=== PATIENT | female | born 1945 | race Caucasian/White ===

== ENCOUNTER 2020-10-16 11:46 | Inpatient (IN) | payer MEDICARE, SELFPAY ==
[2020-10-16] VITALS (11 sets, daily range): BP systolic 149–206; BP diastolic 76–109; PULSE 55–88; RESP 16–18; TEMP 36.4–36.9; O2SAT 94–100; BMI 30.2
--- NOTE | 2020-10-16 12:03 | DI.RAD.S_ITS ---
PROCEDURE: XR CHEST 1V INDICATIONS: Possible stroke TECHNIQUE: One view of the chest was acquired. COMPARISON: [facility], CT, CT HEAD/BRAIN WO CON, 10/16/2020, 12:27. FINDINGS: Surgical changes and devices: None. Lungs and pleura: Lungs are clear. No pleural effusions or pneumothorax. Mediastinum: The cardiac contours are within normal limits. The aorta demonstrates calcification and tortuosity. Bones and chest wall: No suspicious bony lesions. Mild dextroconvex scoliotic curvature is seen. Age-appropriate bony degenerative changes are seen. Overlying soft tissues appear unremarkable. IMPRESSION: No acute cardiopulmonary process is seen. Dictated by: Tho Crespo M.D. on 10/16/2020 at 11:39 Approved by: Tho Crespo M.D. on 10/16/2020 at 11:40
--- NOTE | 2020-10-16 12:24 | DI.CT.S_ITS ---
PROCEDURE: CT HEAD/BRAIN WO CON INDICATIONS: increased confusion TECHNIQUE: Noncontrast 4.5 mm thick angled axial sections acquired from the foramen magnum to the vertex, with coronal and sagittal reformats. For radiation dose reduction, the following was used: automated exposure control, adjustment of mA and/or kV according to patient size. COMPARISON: [facility], MR, BRAIN (IAC) W AND WO CONTRAST, 11/10/2009, 14:25. [facility], CR, XR CHEST 1V, 10/16/2020, 12:27. FINDINGS: Image quality: Excellent. CSF spaces: Basal cisterns are patent. No extra-axial fluid collections. The ventricles are symmetric in size and shape. Brain: No intracranial bleeds or masses. The previously described left internal auditory canal lesion is not seen on this study. There is cerebral volume loss for age, with resultant ventricular and sulcal prominence. There are periventricular and deep white matter chronic small vessel ischemic changes. An apparent remote lacunar infarct can be seen involving the left insula. There is intracranial internal carotid artery atherosclerosis. Skull and face: Calvarium and visualized facial bones appear intact, without suspicious lesions. Incidental note is made of hyperostosis frontalis. This is not considered to be pathologic in a woman of this age. Sinuses: Visualized sinuses and mastoids are clear. IMPRESSION: No carla, acute abnormality can be seen on this study. Apparent remote left insula lacunar infarction, which is stable since 2009. Dictated by: Tho Crespo M.D. on 10/16/2020 at 11:40 Approved by: Tho Crespo M.D. on 10/16/2020 at 11:42
--- NOTE | 2020-10-16 12:47 | ED_ITS ---
HPI - Neuro Symptoms/Deficit General Chief Complaint: Neuro Symptoms/Deficit Stated Complaint: CONFUSION, MEMORY LOSS Time Seen by Provider: 10/16/20 12:08 Source: patient and family Mode of arrival: Ambulatory Limitations: no limitations History of Present Illness HPI Narrative: Patient is a 74-year-old female with history of hypertension hyperlipidemia and CVA presenting with worsening confusion. She has and ne guille who checks on her regularly she spoke to her on the phone last week she does have some issues with word finding at baseline however today she is much more confused. When asked what year it is she consistently replies Friday, when asked what she did yesterday she talks about cigarette boxes but when she went to open a box there was nothing there. She is referring to frequently looking for nail [place] remover about cannot find it. She denies any pain. She can not remember if she has had fever. Timing confirmed by: caregiver On Anticoagulants: Yes (ASA) Related Data Home Medications Medication Instructions Recorded Confirmed cholecalciferol (vitamin D3) 2,000 unit PO QDAY #0 09/15/12 10/16/20 [Vitamin D3] Previous Rx's Medication Instructions Recorded amlodipine [Norvasc] 5 mg PO QDAY #90 tab 09/02/16 atorvastatin [Lipitor] 80 mg PO HS #90 tab 09/02/16 furosemide 40 mg PO QDAY #30 tab 12/03/16 omeprazole 40 mg PO QDAY #180 cap 12/03/16 triamcinolone acetonide 0.1 % TOPICAL PRN #80 gm 03/14/17 clotrimazole 1 gm TOPICAL QDAY #30 gm 03/20/17 Allergies Allergy/AdvReac Type Severity Reaction Status Date / Time cat dander Allergy Intermediate Sneezing Verified 10/16/20 12:01 adhesive tape AdvReac Intermediate Rash Verified 10/16/20 12:01 Review of Systems Review of Systems Narrative: Very confused ROS Unobtainable: Unobtainable due to mental condition Hematologic/Lymphatic On Anticoagulants: Yes (ASA) Patient History Medical History Anemia (09/13/16) Coronary artery disease involving [place] coronary artery of [place] heart without angina pectoris (09/13/16) Essential hypertension (09/13/16) Hirsutism (09/13/16) History of myocardial infarction (09/13/16) History of smoking (09/13/16) Mixed hyperlipidemia (09/13/16) Primary insomnia (09/13/16) Social History household members: none Smoking Status: Never smoker Smoking Status: Never smoker alcohol intake frequency: 0-2 drinks per day Substance Use Type: does not use Exam Initial Vital Signs Initial Vital Signs: Vital Signs Temperature 98.0 F 10/16/20 11:54 Pulse Rate 88 10/16/20 11:54 Respiratory Rate 18 10/16/20 11:54 Blood Pressure 206/109 H 10/16/20 11:54 Pulse Oximetry 99 10/16/20 11:54 GENERAL: Alert pleasantly confused 74-year-old female and in no acute distress. HEENT: Head atraumatic,EOMI, pupils reactive, face symmetric, moist mucous membranes CARDIOVASCULAR: Regular rate and rhythm without murmurs, rubs or gallops. RESPIRATORY: Breath sounds equal bilaterally, no wheezes rales or rhonchi. ABDOMEN: Soft, nontender. Normoactive bowel sounds all 4 quadrants. No guarding or rebound. EXTREMITIES: Normal range of motion, no clubbing or edema. Neurovascularly intact NEUROLOGICAL: Alert and oriented x1.Normal gait and speech. Cranial nerves II through XII grossly intact. Good [id number], good [id number], strength equal bilaterally, no dysarthria or aphasia, sensation in tact to soft touch bilaterally, no visual changes, no facial droop SKIN: Warm, dry, no laceration, no petechiae, no rashes or lesions. Course Orders Ordered: ED Orders 10/16/20 12:03 XR chest 1V Stat EKG-12 Lead Stat 10/16/20 12:16 Urine Drug Screen, Rapid Stat Urine Microscopic Stat 10/16/20 12:24 CT head/brain wo con Stat 10/16/20 12:25 Acetaminophen Stat Complete Blood Count AUTO DIFF Stat Comprehensive Metabolic Panel Stat Ethanol (ETOH) Stat Lactate (Lactic Acid) Stat Partial Thromboplastin Time Stat Procalcitonin Stat Prothrombin Time INR Stat Salicylate Stat TSH w/ Reflex to FT4 Stat Troponin & CK Cardiac Panel Stat 10/16/20 13:25 Ammonia (NH3) Stat 10/16/20 14:45 COVID19 - ADMIT (GEOSPATIAL INFORMATION TECHNOLOGIST swab/PCR) Stat Acetaminophen (Acetaminophen 325 Mg Tablet) 650 mg PO Q6HR PRN PRN Reason: Fever/Mild Pain (1-3) Last Admin: 10/16/20 18:36 Dose: 650 mg Documented by: MISAEL Enoxaparin Sodium (Enoxaparin 40 Mg/0.4 Ml Syringe) 40 mg SUBCUT DAILY LAYA Sodium Chloride (Normal Saline 0.9%) 1,000 mls @ 75 mls/hr IV CONT LAYA Last Admin: 10/16/20 18:16 Dose: 75 mls/hr Documented by: MISAEL Ceftriaxone Sodium/Dextrose (Rocephin) 1 gm in 50 mls @ 100 mls/hr IV Q24H LAYA Discontinued Medications Ceftriaxone Sodium/Dextrose (Rocephin) 1 gm in 50 mls @ 100 mls/hr IV NOW ONE Stop: 10/16/20 14:17 Last Infusion: 10/16/20 15:44 Dose: 0 mls/hr Documented by: Admin: 10/16/20 14:38 Dose: 100 mls/hr Documented by: ANATOLY Vital Signs Vital signs: Vital Signs - 8 hr 10/16/20 11:54 10/16/20 13:41 10/16/20 14:00 Temperature 98.0 F Pulse Rate 88 55 L 56 L Respiratory Rate 18 Blood Pressure 206/109 H 182/86 H Pulse Oximetry 99 100 99 MDM - Neuro Symptoms/Deficit Lab Data Attestation: I reviewed the patient's lab results. Result diagrams: 10/16/20 12:25 10/16/20 12:25 Labs: Lab Results 10/16/20 10/16/20 10/16/20 Range/Units 12:16 12:16 12:25 WBC 8.9 (4.5-11.0) X10^3/uL RBC 4.33 (4.0-5.2) X10^6/uL Hgb 13.5 (12.0-16.0) g/dL Hct 39.6 (36-46) % MCV 91.5 (80-100) fL MCH 31.1 (26-34) PG MCHC 34.0 (30-36) % RDW 14.2 (11.6-14.8) % Plt Count 255 (150-400) X10^3/uL Neut % (Auto) 77.5 H (50-75) % Lymph % (Auto) 11.8 L (25-40) % [place] % (Auto) 9.7 (3-14) % Eos % (Auto) 0.6 L (2-4) % Baso % (Auto) 0.4 (0-2) % Neut # (Auto) 6900 (5021-3763) /uL Lymph # (Auto) 1100 (6319-4045) /uL [place] # (Auto) 900 (0-900) /uL Eos # (Auto) 100 (0-450) /uL Baso # (Auto) 0 (0-100) /uL PT (10.1-12.7) SECONDS INR (0.9-1.3) APTT (26.4-36.2) SECONDS Sodium (137-145) mmol/L Potassium (3.4-5.1) mmol/L Chloride (98-107) mmol/L Carbon Dioxide (22-32) mmol/L BUN (7-17) mg/dL Creatinine (0.52-1.04) mg/dL Estimated GFR (>60) mL/min BUN/Creatinine Ratio (6-22) Glucose (80-110) mg/dL Lactate (0.7-2.1) mmol/L Calcium (8.4-10.2) mg/dL Total Bilirubin (0.2-1.3) mg/dL AST (14-36) IU/L ALT (<35) IU/L Alkaline Phosphatase (38-126) U/L Ammonia (9-30) umol/L Total Creatine Kinase (30-135) U/L CK-MB (CK-2) CK-MB (CK-2) Rel Index Troponin I (0.01-0.034) ng/mL Total Protein (6.3-8.2) g/dL Albumin (3.5-5.0) g/dL Globulin (1.7-4.1) g/dL Albumin/Globulin Ratio (1.0-2.8) Procalcitonin (<0.5) ng/mL TSH (0.47-4.68) uIU/mL Urine RBC 1-5/hpf (0-5/HPF) Urine WBC 5-10/hpf H (0-5/HPF) Ur Squamous Epith Cells 5-10 /hpf H (0-5/HPF) Amorphous Sediment 2+ Urine Bacteria None seen (None) Ur Culture Indicated? Cult not indicated Salicylates (<20) mg/dL U Opiates 300ng/mL cut Negative (Negative) Ur Oxycodone Screen Negative (Negative) Urine Methadone Screen Negative (Negative) Acetaminophen (10-30) ug/mL Ur Barbiturates Screen Negative (Negative) U Tricyclic Antidepress Negative (Negative) Ur Phencyclidine Scrn Negative (Negative) Ur Amphetamines Screen Negative (Negative) U Methamphetamines Scrn Negative (Negative) Ur MDMA Scrn (Ecstasy) Negative (Negative) U Benzodiazepines Scrn Negative (Negative) Urine Cocaine Screen Negative (Negative) U Marijuana (THC) Screen Negative (Negative) Ethyl Alcohol ( - 10) mg/dL 10/16/20 10/16/20 10/16/20 Range/Units 12:25 12:25 12:25 WBC (4.5-11.0) X10^3/uL RBC (4.0-5.2) X10^6/uL Hgb (12.0-16.0) g/dL Hct (36-46) % MCV (80-100) fL MCH (26-34) PG MCHC (30-36) % RDW (11.6-14.8) % Plt Count (150-400) X10^3/uL Neut % (Auto) (50-75) % Lymph % (Auto) (25-40) % [place] % (Auto) (3-14) % Eos % (Auto) (2-4) % Baso % (Auto) (0-2) % Neut # (Auto) (7976-3860) /uL Lymph # (Auto) (6057-9242) /uL [place] # (Auto) (0-900) /uL Eos # (Auto) (0-450) /uL Baso # (Auto) (0-100) /uL PT 11.7 (10.1-12.7) SECONDS INR 1.0 (0.9-1.3) APTT 34 (26.4-36.2) SECONDS Sodium 137 (137-145) mmol/L Potassium 3.6 (3.4-5.1) mmol/L Chloride 103 (98-107) mmol/L Carbon Dioxide 23 (22-32) mmol/L BUN 14 (7-17) mg/dL Creatinine 0.60 (0.52-1.04) mg/dL Estimated GFR > 60.0 (>60) mL/min BUN/Creatinine Ratio 23.3 H (6-22) Glucose 107 (80-110) mg/dL Lactate (0.7-2.1) mmol/L Calcium 10.5 H (8.4-10.2) mg/dL Total Bilirubin 1.7 H (0.2-1.3) mg/dL AST 28 (14-36) IU/L ALT 17 (<35) IU/L Alkaline Phosphatase 99 (38-126) U/L Ammonia (9-30) umol/L Total Creatine Kinase 43 (30-135) U/L CK-MB (CK-2) TNP CK-MB (CK-2) Rel Index TNP Troponin I < 0.012 (0.01-0.034) ng/mL Total Protein 8.0 (6.3-8.2) g/dL Albumin 4.7 (3.5-5.0) g/dL Globulin 3.3 (1.7-4.1) g/dL Albumin/Globulin Ratio 1.4 (1.0-2.8) Procalcitonin (<0.5) ng/mL TSH 1.16 (0.47-4.68) uIU/mL Urine RBC (0-5/HPF) Urine WBC (0-5/HPF) Ur Squamous Epith Cells (0-5/HPF) Amorphous Sediment Urine Bacteria (None) Ur Culture Indicated? Salicylates (<20) mg/dL U Opiates 300ng/mL cut (Negative) Ur Oxycodone Screen (Negative) Urine Methadone Screen (Negative) Acetaminophen (10-30) ug/mL Ur Barbiturates Screen (Negative) U Tricyclic Antidepress (Negative) Ur Phencyclidine Scrn (Negative) Ur Amphetamines Screen (Negative) U Methamphetamines Scrn (Negative) Ur MDMA Scrn (Ecstasy) (Negative) U Benzodiazepines Scrn (Negative) Urine Cocaine Screen (Negative) U Marijuana (THC) Screen (Negative) Ethyl Alcohol ( - 10) mg/dL 10/16/20 10/16/20 10/16/20 Range/Units 12:25 12:25 12:25 WBC (4.5-11.0) X10^3/uL RBC (4.0-5.2) X10^6/uL Hgb (12.0-16.0) g/dL Hct (36-46) % MCV (80-100) fL MCH (26-34) PG MCHC (30-36) % RDW (11.6-14.8) % Plt Count (150-400) X10^3/uL Neut % (Auto) (50-75) % Lymph % (Auto) (25-40) % [place] % (Auto) (3-14) % Eos % (Auto) (2-4) % Baso % (Auto) (0-2) % Neut # (Auto) (7164-6502) /uL Lymph # (Auto) (3966-1856) /uL [place] # (Auto) (0-900) /uL Eos # (Auto) (0-450) /uL Baso # (Auto) (0-100) /uL PT (10.1-12.7) SECONDS INR (0.9-1.3) APTT (26.4-36.2) SECONDS Sodium (137-145) mmol/L Potassium (3.4-5.1) mmol/L Chloride (98-107) mmol/L Carbon Dioxide (22-32) mmol/L BUN (7-17) mg/dL Creatinine (0.52-1.04) mg/dL Estimated GFR (>60) mL/min BUN/Creatinine Ratio (6-22) Glucose (80-110) mg/dL Lactate 1.0 (0.7-2.1) mmol/L Calcium (8.4-10.2) mg/dL Total Bilirubin (0.2-1.3) mg/dL AST (14-36) IU/L ALT (<35) IU/L Alkaline Phosphatase (38-126) U/L Ammonia (9-30) umol/L Total Creatine Kinase (30-135) U/L CK-MB (CK-2) CK-MB (CK-2) Rel Index Troponin I (0.01-0.034) ng/mL Total Protein (6.3-8.2) g/dL Albumin (3.5-5.0) g/dL Globulin (1.7-4.1) g/dL Albumin/Globulin Ratio (1.0-2.8) Procalcitonin 0.04 (<0.5) ng/mL TSH (0.47-4.68) uIU/mL Urine RBC (0-5/HPF) Urine WBC (0-5/HPF) Ur Squamous Epith Cells (0-5/HPF) Amorphous Sediment Urine Bacteria (None) Ur Culture Indicated? Salicylates < 1.0 (<20) mg/dL U Opiates 300ng/mL cut (Negative) Ur Oxycodone Screen (Negative) Urine Methadone Screen (Negative) Acetaminophen < 10 L (10-30) ug/mL Ur Barbiturates Screen (Negative) U Tricyclic Antidepress (Negative) Ur Phencyclidine Scrn (Negative) Ur Amphetamines Screen (Negative) U Methamphetamines Scrn (Negative) Ur MDMA Scrn (Ecstasy) (Negative) U Benzodiazepines Scrn (Negative) Urine Cocaine Screen (Negative) U Marijuana (THC) Screen (Negative) Ethyl Alcohol < 10 ( - 10) mg/dL 10/16/20 Range/Units 13:25 WBC (4.5-11.0) X10^3/uL RBC (4.0-5.2) X10^6/uL Hgb (12.0-16.0) g/dL Hct (36-46) % MCV (80-100) fL MCH (26-34) PG MCHC (30-36) % RDW (11.6-14.8) % Plt Count (150-400) X10^3/uL Neut % (Auto) (50-75) % Lymph % (Auto) (25-40) % [place] % (Auto) (3-14) % Eos % (Auto) (2-4) % Baso % (Auto) (0-2) % Neut # (Auto) (6960-4299) /uL Lymph # (Auto) (5398-6471) /uL [place] # (Auto) (0-900) /uL Eos # (Auto) (0-450) /uL Baso # (Auto) (0-100) /uL PT (10.1-12.7) SECONDS INR (0.9-1.3) APTT (26.4-36.2) SECONDS Sodium (137-145) mmol/L Potassium (3.4-5.1) mmol/L Chloride (98-107) mmol/L Carbon Dioxide (22-32) mmol/L BUN (7-17) mg/dL Creatinine (0.52-1.04) mg/dL Estimated GFR (>60) mL/min BUN/Creatinine Ratio (6-22) Glucose (80-110) mg/dL Lactate (0.7-2.1) mmol/L Calcium (8.4-10.2) mg/dL Total Bilirubin (0.2-1.3) mg/dL AST (14-36) IU/L ALT (<35) IU/L Alkaline Phosphatase (38-126) U/L Ammonia < 9 L (9-30) umol/L Total Creatine Kinase (30-135) U/L CK-MB (CK-2) CK-MB (CK-2) Rel Index Troponin I (0.01-0.034) ng/mL Total Protein (6.3-8.2) g/dL Albumin (3.5-5.0) g/dL Globulin (1.7-4.1) g/dL Albumin/Globulin Ratio (1.0-2.8) Procalcitonin (<0.5) ng/mL TSH (0.47-4.68) uIU/mL Urine RBC (0-5/HPF) Urine WBC (0-5/HPF) Ur Squamous Epith Cells (0-5/HPF) Amorphous Sediment Urine Bacteria (None) Ur Culture Indicated? Salicylates (<20) mg/dL U Opiates 300ng/mL cut (Negative) Ur Oxycodone Screen (Negative) Urine Methadone Screen (Negative) Acetaminophen (10-30) ug/mL Ur Barbiturates Screen (Negative) U Tricyclic Antidepress (Negative) Ur Phencyclidine Scrn (Negative) Ur Amphetamines Screen (Negative) U Methamphetamines Scrn (Negative) Ur MDMA Scrn (Ecstasy) (Negative) U Benzodiazepines Scrn (Negative) Urine Cocaine Screen (Negative) U Marijuana (THC) Screen (Negative) Ethyl Alcohol ( - 10) mg/dL Point of Care Testing Glucose POC 94 Urine Dip Bedside Urine Glucose Negative Bedside Urine Bilirubin - Negative Bedside Urine Ketone - Negative Urine Specific [place] 1.025 Bedside Urine Occult Blood +/- Bedside Urine pH 6.0 Bedside Urine Protein +/- 15 Bedside Urine Urobilinogen - Negative Bedside Urine Nitrite + Positive Bedside Urine Leukocytes ++ [address] scan - head: Radiologist's Impression: PROCEDURE: CT HEAD/BRAIN WO CON INDICATIONS: increased confusion TECHNIQUE: Noncontrast 4.5 mm thick angled axial sections acquired from the foramen magnum to the vertex, with coronal and sagittal reformats. For radiation dose reduction, the following was used: automated exposure control, adjustment of mA and/or kV according to patient size. COMPARISON: [facility], MR, BRAIN (IAC) W AND WO CONTRAST, 11/10/2009, 14:25. [facility], CR, XR CHEST 1V, 10/16/2020, 12:27. FINDINGS: Image quality: Excellent. CSF spaces: Basal cisterns are patent. No extra-axial fluid collections. The ventricles are symmetric in size and shape. Brain: No intracranial bleeds or masses. The previously described left internal auditory canal lesion is not seen on this study. There is cerebral volume loss for age, with resultant ventricular and sulcal prominence. There are periventricular and deep white matter chronic small vessel ischemic changes. An apparent remote lacunar infarct can be seen involving the left insula. There is intracranial internal carotid artery atherosclerosis. Skull and face: Calvarium and visualized facial bones appear intact, without suspicious lesions. Incidental note is made of hyperostosis frontalis. This is not considered to be pathologic in a woman of this age. Sinuses: Visualized sinuses and mastoids are clear. IMPRESSION: No carla, acute abnormality can be seen on this study. Apparent remote left insula lacunar infarction, which is stable since 2009. Dictated by: Tho Crespo M.D. on 10/16/2020 at 11:40 ECG Data Attestation: I personally reviewed and interpreted this ECG as follows: Prior ECG tracings: not available for review Interpretation: Sinus rhythm rate 62 year interval 124 continue the [address] changes no prior to compare [facility] Narrative Medical decision making narrative: The patient does have nitrates and leukocytes in her urine positive for UTI. Overall does not appear acutely septic without fever leukocytosis and has a normal lactate. However she clearly is not able to communicate clearly and seems very confused. I did speak on the phone with her son who is her DPOA, he will be on a flight from [place]. States that she does have some confusion at baseline but this seems to be more so than usual. No focal deficits. Metabolic encephalopathy likely from UTI. She is given 1 dose of Rocephin. Concern patient lives alone on the [facility]. Son is concerned that she is unable to care for herself requesting social work evaluation Discharge Plan Departure Patient Disposition: Admitted As Inpatient Clinical Impression: Acute metabolic encephalopathy, Acute UTI Admit Date/Time: 10/16/20 14:21 Admit Provider: Steven Null
[2020-10-16 13:11] LABS: Add Manual Diff / Slide Review NO; Basophils Absolute Auto 0 /uL (0-100); Basophils Percent Auto 0.4 % (0-2); Eosinophils Absolute Auto 100 /uL (0-450); Eosinophils Percent Auto 0.6 % (2-4); Hematocrit 39.6 % (36-46); Hemoglobin 13.5 g/dL (12.0-16.0); Lymphocytes Absolute Auto 1100 /uL (1100-4500); Lymphocytes Percent Auto 11.8 % (25-40); Mean Corpuscular Hemoglobin 31.1 PG (26-34); Mean Corpuscular Volume 91.5 fL (80-100); Monocytes Absolute Auto 900 /uL (0-900); Monocytes Percent Auto 9.7 % (3-14); Neutrophils Absolute Auto 6900 /uL (1500-7000); Neutrophils Percent Auto 77.5 % (50-75); Platelet Count 255 X10^3/uL (150-400); Red Blood Cell Count 4.33 X10^6/uL (4.0-5.2); Red Cell Distribution Width 14.2 % (11.6-14.8); White Blood Cell Count 8.9 X10^3/uL (4.5-11.0)
[2020-10-16 13:13] LABS: Prothrombin Time 11.7 SECONDS (10.1-12.7)
[2020-10-16 13:16] LABS: PTT Partial Thromboplastin Tim 34 SECONDS (26.4-36.2)
[2020-10-16 13:20] LABS: UR Morphine/Opiate cutoff 300 Negative (Negative); Ur Creatinine Normal (Normal); Ur Specific Gravity Normal (Normal); Urine Amphetamines Negative (Negative); Urine Barbiturates Negative (Negative); Urine Benzodiazepines Negative (Negative); Urine Cocaine Negative (Negative); Urine MDMA Negative (Negative); Urine Methadone Negative (Negative); Urine Methamphetamines Negative (Negative); Urine Oxycodone Negative (Negative); Urine Phencyclidine Negative (Negative); Urine Tetrahydrocannabinol Negative (Negative); Urine Tricyclic Antidepressant Negative (Negative); Urine pH Normal (Normal)
[2020-10-16 13:21] LABS: Alanine Aminotransferase 17 IU/L (<35); Albumin 4.7 g/dL (3.5-5.0); Albumin Globulin Ratio 1.4 (1.0-2.8); Alkaline Phosphatase 99 U/L (38-126); Aspartate Aminotransferase 28 IU/L (14-36); BUN Creatinine Ratio 23.3 (6-22); Bilirubin Total 1.7 mg/dL (0.2-1.3); Blood Urea Nitrogen 14 mg/dL (7-17); Calcium 10.5 mg/dL (8.4-10.2); Carbon Dioxide 23 mmol/L (22-32); Chloride 103 mmol/L (98-107); Creatine Kinase 43 U/L (30-135); Estimated Glomerular Filt Rate > 60.0 mL/min (>60); Globulin 3.3 g/dL (1.7-4.1); Glucose 107 mg/dL (80-110); HEMOLYSIS < 15 (0-50); Potassium 3.6 mmol/L (3.4-5.1); Sodium 137 mmol/L (137-145)
[2020-10-16 13:22] LABS: Acetaminophen < 10 ug/mL (10-30); Ethanol (ETOH) < 10 mg/dL; Salicylate < 1.0 mg/dL (<20)
[2020-10-16 13:32] LABS: Troponin I < 0.012 ng/mL (0.01-0.034)
[2020-10-16 13:38] LABS: Procalcitonin 0.04 ng/mL (<0.5)
--- NOTE | 2020-10-16 13:43 | PC.NURSE ---
pt states we are allowed to speak with daughter alice and son karley.
[2020-10-16 13:50] LABS: Ammonia (NH3) < 9 umol/L (9-30)
[2020-10-16 13:54] LABS: TSH w/ Reflex to FT4 1.16 uIU/mL (0.47-4.68)
--- NOTE | 2020-10-16 14:26 | PC.NURSE ---
during 2 different conversations the patient spoke about empty boxes. patient mentioned a cigarette box being empty, pt doesn't smoke. pt then spoke about a box being empty that was supposed to have finger nail supplies, it does appear that pt gets her nails done.
[2020-10-16] MEDS: CEFTRIAXONE 1 GM/50 ML FROZ.PIGGY IV (14:38)
[2020-10-16 15:21] LABS: Bacteria Urine None Seen
[2020-10-16 15:36] LABS: Amorphous Sediment Urine 2+; Culture Indicated Urine Cult Not Indicated; RBC Urine 1-5/HPF (0-5/HPF); Squamous Epithelial Cell Urine 5-10 /HPF (0-5/HPF); WBC Urine 5-10/HPF (0-5/HPF)
[2020-10-16 16:42] LABS: COVID19 - ADMIT (NP swab/PCR) Negative (Negative)
[2020-10-16] MEDS: SODIUM CHLORIDE 0.9% 1,000 ML 75 ML IV (18:16)
[2020-10-16] MEDS: ACETAMINOPHEN 325 MG TABLET 650 MG PO (18:36)
--- NOTE | 2020-10-16 20:27 | PM.HP.1 ---
History of Present Illness History of Present Illness Date Patient Seen: 10/16/20 Time Patient Seen: 15:00 Date of Onset of Symptoms: 10/16/20 Chief complaint: CONFUSION, MEMORY LOSS Narrative: 74W PMH CVA, HTN, HL who presents to the ER with worsening confusion. Patient is encephalopathic and is not making clear sense. She is with a neighbor who checks on her regularly and today noted she was much more confused than baseline. The patient is denying any symptoms. No pain, no fever. She does not think anything is wrong at the moment. She has noo chest pain, SOB, abdominal pain, nausea, or vomiting. Neighbor is not clear how long this has been occurring for. Patient History Medical History Anemia (09/13/16) Coronary artery disease involving [place] coronary artery of [place] heart without angina pectoris (09/13/16) Essential hypertension (09/13/16) Hirsutism (09/13/16) History of myocardial infarction (09/13/16) History of smoking (09/13/16) Mixed hyperlipidemia (09/13/16) Primary insomnia (09/13/16) Family & Social History Social History: household members none Prior Living Arrangements Apartment/Condo Safety & Behavioral: Feels Safe in Current Yes Environment Been Physically Hurt or No Threatened By a Person Suicidal Ideation Description None Suicide Plan Description No Plan Tobacco & Substance use: Smoking Status Never smoker alcohol intake frequency a few times a month Substance Use Type does not use Meds Home Medications and Allergies Home Medications Medication Instructions Recorded Confirmed Type cholecalciferol (vitamin D3) 2,000 unit PO QDAY #0 09/15/12 10/16/20 History [Vitamin D3] amlodipine [Norvasc] 5 mg PO QDAY #90 tab 09/02/16 10/16/20 Rx atorvastatin [Lipitor] 80 mg PO HS #90 tab 09/02/16 10/16/20 Rx furosemide 40 mg PO QDAY #30 tab 12/03/16 10/16/20 Rx omeprazole 40 mg PO QDAY #180 cap 12/03/16 10/16/20 Rx triamcinolone acetonide 0.1 % TOPICAL PRN #80 gm 03/14/17 10/16/20 Rx clotrimazole 1 gm TOPICAL QDAY #30 gm 03/20/17 10/16/20 Rx Allergies Allergy/AdvReac Type Severity Reaction Status Date / Time cat dander Allergy Intermediate Sneezing Verified 10/16/20 12:01 adhesive tape AdvReac Intermediate Rash Verified 10/16/20 12:01 Review of Systems Review of Systems Narrative: 14 systems reviewed and negative except as documented by the HPI. Exam Vital Signs (past 8 hours): - 10/16/20 13:41 10/16/20 14:00 10/16/20 14:30 Temperature Pulse Rate 55 L 56 L 68 Respiratory Rate Blood Pressure 182/86 H Pulse Oximetry 100 99 99 10/16/20 15:00 10/16/20 15:01 10/16/20 17:27 Temperature 98.3 F Pulse Rate 55 L 63 69 Respiratory Rate 17 Blood Pressure 170/95 H 172/92 H Pulse Oximetry 98 98 97 10/16/20 18:24 Temperature Pulse Rate Respiratory Rate Blood Pressure Pulse Oximetry 94 Oxygen Delivery Method Room Air Oxygen Flow Rate 0 Narrative Exam Narrative: GEN: no acute distress, well nourished female HEENT: moist mucous membranes, no JVD, neck supple EYES: PERRLA CV: RRR, no murmurs PULM: clear bilaterally, no wheezes rhonchi rales ABD: soft, nontender, nondistended, no organomegaly noted, normal bowel sounds EXT: warm and well perfused, no edema SKIN: no rashes noted NEURO: patient with no focal deficits, she has word finding difficult with neighbor notes has at baseline, she is very confused and only oriented to self PSYCH: slightly agitated, but redirectable and pleasant Objective Labs Result Diagrams: 10/16/20 12:25 10/16/20 12:25 Labs: Laboratory Results - last 24 hr 10/16/20 10/16/20 10/16/20 12:16 12:16 12:25 WBC 8.9 RBC 4.33 Hgb 13.5 Hct 39.6 MCV 91.5 MCH 31.1 MCHC 34.0 RDW 14.2 Plt Count 255 Neut % (Auto) 77.5 H Lymph % (Auto) 11.8 L [place] % (Auto) 9.7 Eos % (Auto) 0.6 L Baso % (Auto) 0.4 Neut # (Auto) 6900 Lymph # (Auto) 1100 [place] # (Auto) 900 Eos # (Auto) 100 Baso # (Auto) 0 PT INR APTT Sodium Potassium Chloride Carbon Dioxide BUN Creatinine Estimated GFR BUN/Creatinine Ratio Glucose Lactate Calcium Total Bilirubin AST ALT Alkaline Phosphatase Ammonia Total Creatine Kinase CK-MB (CK-2) CK-MB (CK-2) Rel Index Troponin I Total Protein Albumin Globulin Albumin/Globulin Ratio Procalcitonin TSH Urine RBC 1-5/hpf Urine WBC 5-10/hpf H Ur Squamous Epith Cells 5-10 /hpf H Amorphous Sediment 2+ Urine Bacteria None seen Ur Culture Indicated? Cult not indicated Salicylates U Opiates 300ng/mL cut Negative Ur Oxycodone Screen Negative Urine Methadone Screen Negative Acetaminophen Ur Barbiturates Screen Negative U Tricyclic Antidepress Negative Ur Phencyclidine Scrn Negative Ur Amphetamines Screen Negative U Methamphetamines Scrn Negative Ur MDMA Scrn (Ecstasy) Negative U Benzodiazepines Scrn Negative Urine Cocaine Screen Negative U Marijuana (THC) Screen Negative Ethyl Alcohol SARS-CoV-2 (PCR) 10/16/20 10/16/20 10/16/20 12:25 12:25 12:25 WBC RBC Hgb Hct MCV MCH MCHC RDW Plt Count Neut % (Auto) Lymph % (Auto) [place] % (Auto) Eos % (Auto) Baso % (Auto) Neut # (Auto) Lymph # (Auto) [place] # (Auto) Eos # (Auto) Baso # (Auto) PT 11.7 INR 1.0 APTT 34 Sodium 137 Potassium 3.6 Chloride 103 Carbon Dioxide 23 BUN 14 Creatinine 0.60 Estimated GFR > 60.0 BUN/Creatinine Ratio 23.3 H Glucose 107 Lactate Calcium 10.5 H Total Bilirubin 1.7 H AST 28 ALT 17 Alkaline Phosphatase 99 Ammonia Total Creatine Kinase 43 CK-MB (CK-2) TNP CK-MB (CK-2) Rel Index TNP Troponin I < 0.012 Total Protein 8.0 Albumin 4.7 Globulin 3.3 Albumin/Globulin Ratio 1.4 Procalcitonin TSH 1.16 Urine RBC Urine WBC Ur Squamous Epith Cells Amorphous Sediment Urine Bacteria Ur Culture Indicated? Salicylates U Opiates 300ng/mL cut Ur Oxycodone Screen Urine Methadone Screen Acetaminophen Ur Barbiturates Screen U Tricyclic Antidepress Ur Phencyclidine Scrn Ur Amphetamines Screen U Methamphetamines Scrn Ur MDMA Scrn (Ecstasy) U Benzodiazepines Scrn Urine Cocaine Screen U Marijuana (THC) Screen Ethyl Alcohol SARS-CoV-2 (PCR) 10/16/20 10/16/20 10/16/20 12:25 12:25 12:25 WBC RBC Hgb Hct MCV MCH MCHC RDW Plt Count Neut % (Auto) Lymph % (Auto) [place] % (Auto) Eos % (Auto) Baso % (Auto) Neut # (Auto) Lymph # (Auto) [place] # (Auto) Eos # (Auto) Baso # (Auto) PT INR APTT Sodium Potassium Chloride Carbon Dioxide BUN Creatinine Estimated GFR BUN/Creatinine Ratio Glucose Lactate 1.0 Calcium Total Bilirubin AST ALT Alkaline Phosphatase Ammonia Total Creatine Kinase CK-MB (CK-2) CK-MB (CK-2) Rel Index Troponin I Total Protein Albumin Globulin Albumin/Globulin Ratio Procalcitonin 0.04 TSH Urine RBC Urine WBC Ur Squamous Epith Cells Amorphous Sediment Urine Bacteria Ur Culture Indicated? Salicylates < 1.0 U Opiates 300ng/mL cut Ur Oxycodone Screen Urine Methadone Screen Acetaminophen < 10 L Ur Barbiturates Screen U Tricyclic Antidepress Ur Phencyclidine Scrn Ur Amphetamines Screen U Methamphetamines Scrn Ur MDMA Scrn (Ecstasy) U Benzodiazepines Scrn Urine Cocaine Screen U Marijuana (THC) Screen Ethyl Alcohol < 10 SARS-CoV-2 (PCR) 10/16/20 10/16/20 13:25 14:45 WBC RBC Hgb Hct MCV MCH MCHC RDW Plt Count Neut % (Auto) Lymph % (Auto) [place] % (Auto) Eos % (Auto) Baso % (Auto) Neut # (Auto) Lymph # (Auto) [place] # (Auto) Eos # (Auto) Baso # (Auto) PT INR APTT Sodium Potassium Chloride Carbon Dioxide BUN Creatinine Estimated GFR BUN/Creatinine Ratio Glucose Lactate Calcium Total Bilirubin AST ALT Alkaline Phosphatase Ammonia < 9 L Total Creatine Kinase CK-MB (CK-2) CK-MB (CK-2) Rel Index Troponin I Total Protein Albumin Globulin Albumin/Globulin Ratio Procalcitonin TSH Urine RBC Urine WBC Ur Squamous Epith Cells Amorphous Sediment Urine Bacteria Ur Culture Indicated? Salicylates U Opiates 300ng/mL cut Ur Oxycodone Screen Urine Methadone Screen Acetaminophen Ur Barbiturates Screen U Tricyclic Antidepress Ur Phencyclidine Scrn Ur Amphetamines Screen U Methamphetamines Scrn Ur MDMA Scrn (Ecstasy) U Benzodiazepines Scrn Urine Cocaine Screen U Marijuana (THC) Screen Ethyl Alcohol SARS-CoV-2 (PCR) Negative Assessment & Plan Assessment & Plan narrative: Ms. Lopez is a 74W PMH of CVA, HTN, HL who comes in with confusion, found to have UA positive concerning for UTI. 1. UTI-UA is positive with leukocytes, it is not remarkably abnormal, but no other obvious cause of encephalopathy at the moment, so plan to treat for UTI with ceftriaxone. 2. Metabolic encephalopathy - likely from infection from UTI. Monitor for other sources of infection, and encourage redirection 3. h/o CVA - documented previously, will need to get further information why does not appear to be on aspirin 4. HTN - continue amlodipine, problem stable here 5. HL - continue statin, problem stable here DVT ppx: lovenox 40U sc CODE status: patient to confused to provide at this time, neighbor unable to say, patient has a son who is flying in to be with patient, and is not reachable currently, currently presumed full code COVID-19 COVID-19 status: Negative Result date/Date tested (Pos, Neg/Pending): 10/16/20 Time Spent With Patient Time with patient: 15-24 minutes Quality VTE Deep Vein Thrombosis/Pulmonary Embolism Present on Admission: No MIPS - Admit Advanced Care Plan / Current Medications Measures: #47 ? Advanced Care Plan Clinician documentation instruction: document at admission. [] I confirmed that the patient's Advance Care Plan is present, code status is documented, or surrogate decision maker is listed in the patient?s medical record. [SATISFIES MIPS PERFORMANCE] If Yes, Stop Here [x]The patient?s Advance Care plan is not present because: (select) [MIPS PERFORMANCE EXCEPTION/EXCLUSION] [] I confirmed today that the patient does not wish or was not able to name a surrogate decision maker or provide an Advance Care Plan. [] Hospice care is currently being provided or has been provided this calendar year [] I did NOT confirm today the presence of an Advance Care Plan or surrogate decision maker documented within the patient's medical record. [DOES NOT SATISFY MIPS PERFORMANCE] #130 - Documentation of Current Medications in the Medical Record Clinician documentation instruction: use macro the first time you see a patient. [x] I have utilized all available immediate resources to obtain, update, or review the patient?s current medications. [SATISFIES MIPS PERFORMANCE] If Yes, Stop Here [] The patient is not eligible for medication reconciliation; the patient is in an emergent medical situation where delaying treatment would jeopardize the patient?s health. [MIPS PERFORMANCE EXCEPTION/EXCLUSION] [] I did NOT confirm, update or review the patient's current list of medications today. [DOES NOT SATISFY MIPS PERFORMANCE] MIPS - CL Central Venous Catheter Placement Measure: #76 ? Prevention of Central Venous Catheter (CVC) ? Related Bloodstream Infection Clinician documentation instruction: use macro every time you place a central line. [] All elements of Maximal Sterile Barrier Technique, including hand hygiene, skin prep, and sterile ultrasound technique (if used) were followed. [SATISFIES MIPS PERFORMANCE] If Yes, Stop Here [] If ?No?, the medical reason all elements were NOT used for medical reason [] (ex. emergent condition). [] Maximal Sterile Barrier Technique was not followed, no reason provided [DOES NOT SATISFY MIPS PERFORMANCE] MIPS - DC Heart Failure Measures: #5 - Heart Failure (HF): Angiotensin-Converting Enzyme (SHANTELLE) Inhibitor or Angiotensin Receptor Katerina (ARB) Therapy for Left Ventricular Systolic Dysfunction (LVSD) and #8 - Heart Failure (HF): Beta-Katerina Therapy for Left Ventricular Systolic Dysfunction (LVSD) Clinician documentation instruction: use macro at every CHF discharge. [] The patient has current or prior documentation of left ventricular ejection fraction (LVEF) less than 40%, or moderate or severely depressed left ventricular systolic function. Answer both: [SATISFIES MIPS PERFORMANCE] [] The patient was prescribed or already taking an Angiotensin-Converting Enzyme (SHANTELLE) Inhibitor, or Angiotensin Receptor Katerina (ARB). [] The patient was prescribed or already taking a beta-katerina. If Yes to Both, Stop Here [] Patient not prescribed/taking: [MIPS PERFORMANCE EXCEPTION/EXCLUSION] [] SHANTELLE or ARB for medical/patient/system reason(s) including [] (ex. allergy, intolerance, contraindication) [] Beta-katerina for medical/patient/system reason(s) including [] (ex. allergy, intolerance, contraindication) [] Patient not prescribed/taking: [DOES NOT SATISFY MIPS PERFORMANCE] [] SHANTELLE or ARB, no reason given [] Beta-katerina, no reason given
[2020-10-16] MEDS: ATORVASTATIN 20 MG TABLET 80 MG PO (20:58)
[2020-10-17] VITALS (7 sets, daily range): BP systolic 180–186; BP diastolic 75–93; PULSE 51–72; RESP 18; TEMP 36.5–37; O2SAT 94–99
[2020-10-17] MEDS: PANTOPRAZOLE 40 MG TABLET PO (05:53)
[2020-10-17 06:00] LABS: Add Manual Diff / Slide Review NO; Basophils Absolute Auto 0 /uL (0-100); Basophils Percent Auto 0.3 % (0-2); Eosinophils Absolute Auto 100 /uL (0-450); Eosinophils Percent Auto 1.5 % (2-4); Hematocrit 35.8 % (36-46); Lymphocytes Absolute Auto 1100 /uL (1100-4500); Lymphocytes Percent Auto 19.4 % (25-40); Mean Corpuscular HGB Conc 33.6 % (30-36); Mean Corpuscular Hemoglobin 30.6 PG (26-34); Monocytes Absolute Auto 600 /uL (0-900); Monocytes Percent Auto 10.9 % (3-14); Neutrophils Absolute Auto 3900 /uL (1500-7000); Neutrophils Percent Auto 67.9 % (50-75); Platelet Count 234 X10^3/uL (150-400); Red Blood Cell Count 3.93 X10^6/uL (4.0-5.2); Red Cell Distribution Width 13.8 % (11.6-14.8); White Blood Cell Count 5.7 X10^3/uL (4.5-11.0)
[2020-10-17 06:05] LABS: Alanine Aminotransferase 15 IU/L (<35); Albumin 3.8 g/dL (3.5-5.0); Albumin Globulin Ratio 1.4 (1.0-2.8); Alkaline Phosphatase 67 U/L (38-126); Aspartate Aminotransferase 22 IU/L (14-36); Bilirubin Total 1.3 mg/dL (0.2-1.3); Bilirubin Unconjugated 1.4 mg/dL (0.0-1.1); Globulin 2.7 g/dL (1.7-4.1); HEMOLYSIS < 15 (0-50); Total Protein 6.5 g/dL (6.3-8.2)
[2020-10-17 06:06] LABS: Blood Urea Nitrogen 15 mg/dL (7-17); Calcium 9.7 mg/dL (8.4-10.2); Carbon Dioxide 29 mmol/L (22-32); Chloride 105 mmol/L (98-107); Estimated Glomerular Filt Rate > 60.0 mL/min (>60); Glucose 100 mg/dL (80-110); HEMOLYSIS < 15 (0-50); Magnesium 1.8 mg/dL (1.6-2.3); Phosphorous 3.6 mg/dL (2.8-4.1); Potassium 3.6 mmol/L (3.4-5.1); Sodium 138 mmol/L (137-145)
[2020-10-17] MEDS: CHOLECALCIFEROL (VITAMIN D3) 1,000 UNIT TABLET 2000 UNIT PO (08:29)
[2020-10-17] MEDS: ENOXAPARIN 40 MG/0.4 ML SYRINGE SUBCUT (08:29)
[2020-10-17] MEDS: SODIUM CHLORIDE 0.9% 1,000 ML 75 ML IV (08:29)
[2020-10-17] MEDS: AMLODIPINE 5 MG TABLET PO (08:29)
--- NOTE | 2020-10-17 11:08 | CM.DANOTE ---
Addendum entered by Saumya Alicea 10/17/20 16:48: Received notification from provider that son in agreement to take patient home today. Per provider, son plans to take patient to [place] until further termite exterminator plans can be secured. Son out of room when CASINO SLOT SUPERVISOR returned. Patient confirms with CASINO SLOT SUPERVISOR that she is leaving with her son and that she is agreeable to go to [place] for short amount of time. Patient prefers to stay in [place]. but in agreement to do as son suggests. P: Home today. Son here from [place] and plans to take patient to [place] for a few weeks while skilled nursing planning unfolds. Patient and son provided with resources for [facility] long-term care and senior resource guide [facility]. DILEEP Jaffe Original Note: D/C assessment: Reviewed chart. Patient is a 74yr old female admitted to [facility] with confusion? PCP is Dr. Corral. Primary payor is 1)Medicare 2)[facility]. Met with patient this AM explained CM/SW role. Patient resting in bed at time of visit. Patient alert and oriented to place, time, and current whereabouts. Patient reports that she uses cane on occasion for ambulation. Patient drives at baseline. Patient resides on [address] with her dog char. Patient believes that she is at I.. for no real good reason. Patient reports that police pulled her over and thought that she may have been drinking however, she denies. Patient shown to have UTI/bladder infection that may have attributed to her confusion. Patient's son here from [place] and joins room. Son/Peewee reports that patient continues with significant memory loss and the family feels that patient needs to be placed?. Provider this AM reports patient alert and oriented and stable to discharge. Son having difficulty with acceptance of patient returning home. PT/OT evaluations pending. Patient reports that she wants to d/c home today. P: Pending. Resources for senior assistance and Medicaid application provided. DILEEP Jaffe Discharge Planning/Care Management CM Discharge Assessment Start: 10/17/20 10:34 Freq: Status: Active Protocol: Document 10/17/20 10:35 KJS (Rec: 10/17/20 11:08 KJS [id number]) Discharge Planning Assessment Assigned Promotions Assistant Sales Marketing DILEEP Jaffe Contact Information Peewee Dave (son) # [phone] Advance Directives? No History Provided By Patient,Family Member,Medical Record Has Patient been admitted in last 30 No days? Prior Living Arrangements Apartment/Condo Household Members none Type of transporation used prior to Drives own vehicle admit Independent with ADL's Yes: Patient reports that she is I at baseline. Is patient alert and oriented? Yes: Per notes patient with some cognitive deficits? DME Already Rented / Owned Cane Comment Son here from [place] and would like patient to consider long-term placement for continous memory issues? Patient prefers to d/c home. Discharge Plan Home Transportation Arrangement Pending Whiteboard Updated in Patient Room with Yes name and ext. # of Promotions Assistant Sales Marketing Review Status In Process Next Review Type Continued Stay Review
[2020-10-17] MEDS: CEFTRIAXONE 1 GM/50 ML FROZ.PIGGY IV (13:10)
--- NOTE | 2020-10-17 13:59 | PT.IIE ---
Medical History (Last Reviewed 10/16/20 @ 20:29 by Steven Null MD) Anemia (09/13/16) Coronary artery disease involving [place] coronary artery of [place] heart without angina pectoris (09/13/16) Essential hypertension (09/13/16) Hirsutism (09/13/16) History of myocardial infarction (09/13/16) History of smoking (09/13/16) Mixed hyperlipidemia (09/13/16) Primary insomnia (09/13/16) Physical Therapy Inpatient Evaluation/Re-Eval M1 PT/OT-IP Prior Functional Status Start: 10/17/20 13:00 Freq: NEEDED Status: Active Protocol: Document 10/17/20 13:38 SAK (Rec: 10/17/20 13:59 SAK [id number]) Medical Review Prior Functional Status Medical History Reviewed Yes Diet/Fluid Consistency Regular Communication Patient denies more than mild typical age related memory issues Mobility and Gait independent, use of cane for outdoor long walks Activities of Daily Living and IADL's independent Prior Functional Level (Other details) able to drive, garden, take care of her apartment independently. Denies falls. Social History Household Members none Living Arrangements Apartment/Condo Number of Floors (Floors) One Floor Number of Stairs To Enter/Railing? 0 Home Environment Standard Height Toilet,Tub/ Shower Home Equipment Straight Cane Employment Status Retired Additional Social History Comment worked at [employer] PT-IP Current Condition Start: 10/17/20 13:00 Freq: NEEDED Status: Active Protocol: Document 10/17/20 13:38 SAK (Rec: 10/17/20 13:59 SAK [id number]) Physical Therapy Current Condition Current Condition Evaluation Date 10/17/20 Treatment Diagnosis confusion, memory loss Onset Date 10/16/20 M3 PT-IP Subjective Start: 10/17/20 13:00 Freq: NEEDED Status: Active Protocol: Document 10/17/20 13:38 SAK (Rec: 10/17/20 13:59 SAK [id number]) Subjective Physical Therapy Visit Type Type Initial Evaluation Visit Start Time 13:04 Visit Stop Time 13:36 Total Visit Minutes 32 Physical Therapy Visit Comments Patient Comments alert and oriented to name, place, date, president. Able to follow commands and answer questions appropriately though perseverating on reason for being in hospital as due to having car taken away from her vs confusion. Patient verbalizing strong desire to remain living on [address] with assistance for transportation. Waiting for call back from friend who is checking into options for that assistance on [employer]. States she is concerned her children won't allow her to remain on [employer].I want to be able to return home to [place] to live. I want my privacy and independence. Patient states she was very careful driving, but due to the size of the vehicle she had issues with parking it, and would have to get out and check the lines to see if she had parked safely. Patient Goals to be discharged home Therapy Pain Assessment Pain Present Pain Present Denied Pain M4 PT-IP Mobility and Gait Start: 10/17/20 13:00 Freq: NEEDED Status: Active Protocol: Document 10/17/20 13:38 [facility] (Rec: 10/17/20 13:59 [facility] [id number]) PT-Bed Mobility Assessment Rolling Level of Assist Independent Supine to Sit Supine to Sit Independent Sit to Supine Sit to Supine Independent Scooting Scooting to Edge of Bed Independent Scooting Up and Down in Bed Independent PT-Transfer Assessment Sit to and From Stand Sit to and from Stand Independent Equipment Transfer Assistive Device None Orthotic/Prosthetic Devices or Brace: No Transfer Ability Level of Assist Independent Comments Mobility Comments able to withstand nudges, reach to floor, turn, reach forward, transfer, and walk without losing balance. Gait Assessment Gait Gait Assistance Required: Independent Distance (Feet) 100 Assistive Devices Assistive Device None Orthotic/Prosthetic Devices or Brace: No Comments Gait Comments independent, no LOB Stair Climbing Assessment Comments Stair Climbing Comments patient has no stairs at home PT-Balance Assessment Sitting Balance and Reactions Static Sitting Balance Ability Normal Dynamic Sitting Balance Ability Normal Standing Balance and Reactions Static Standing Balance Ability Normal Dynamic Standing Balance Ability Normal Balance Tests Single Limb Standing 3 sec Functional Reach Test 6 inches Tandem Standing 6 sec M5 PT-IP Objective Assessments Start: 10/17/20 13:00 Freq: NEEDED Status: Active Protocol: Document 10/17/20 13:38 SAK (Rec: 10/17/20 13:59 [facility] [id number]) Orientation Orientation/Cognition Level of Alertness Alert Orientation Name,Age,Birthday,Month,Date, Year,Place Language Function Ability No Deficits Noted Safety Awareness Understands Safety Issues Comments no obvious memory issues noted during PT session exept for reason for hospital admission Gross Range of Motion Upper Extremity ROM Assessment Within Functional Limits Strength Upper Extremity Strength Assessment Within Functional Limits Lower Extremity Strength Assessment Within Functional Limits Coordination Assessment Gross Coordination Gross Coordination WNL Sensation Assessment Sensation Gross Sensation WNL Light Touch Intact Muscle Tone Muscle Tone WNL Yes M7 PT-IP Assessment and Plan Start: 10/17/20 13:00 Freq: NEEDED Status: Active Protocol: Document 10/17/20 13:38 [facility] (Rec: 10/17/20 13:59 [facility] [id number]) PT Summary Assessment and Plan Summary Assessment Summary Patient referred to PT for evaluation to assist with decision over discharge placement. From a physical therapy standpoint patient did very well with all mobility skills demonstrating safe transfers and gait without assistive device on level surfaces. She doesn't have stairs at home, but uses a cane on outdoor uneven surfaces. Her ROM and strength in UE's and LE's is WNL, no sensory deficits. Cognition WNL during our session except for confusion about reason for her admission to the hospital. From PT standpoint she is safe to discharge home if assistance for transportation needs is able to be identified because she is not in walking distance to ferry or store. No further PT indicated. Discharge Recommendations PT Discharge Recommendations Home,Home with Assistance Transportation Needs at Discharge Private Vehicle
--- NOTE | 2020-10-17 14:33 | OT.IP.EVAL ---
Past Medical History (Last Reviewed 10/16/20 @ 20:29 by Steven Null MD) Anemia (09/13/16) Coronary artery disease involving ute coronary artery of ute heart without angina pectoris (09/13/16) Essential hypertension (09/13/16) Hirsutism (09/13/16) History of myocardial infarction (09/13/16) History of smoking (09/13/16) Mixed hyperlipidemia (09/13/16) Primary insomnia (09/13/16) Occupational Therapy Inpatient Evaluation/Re-Eval M1 PT/OT-IP Prior Functional Status Start: 10/17/20 15:07 Freq: NEEDED Status: Active Protocol: Document 10/17/20 15:07 [facility] (Rec: 10/17/20 15: [facility] [id number]) Medical Review Prior Functional Status Medical History Reviewed Yes Diet/Fluid Consistency Regular Communication Patient denies more than mild typical age related memory issues Mobility and Gait independent, use of cane for outdoor long walks Activities of Daily Living and IADL's independent Prior Functional Level (Other details) able to drive, garden, take care of her apartment independently. Denies falls. Social History Household Members none Living Arrangements Apartment/Condo Number of Floors (Floors) One Floor Number of Stairs To Enter/Railing? 0 Home Environment Standard Height Toilet,Tub/ Shower Home Equipment Straight Cane Employment Status Retired Additional Social History Comment worked at [employer] OT-IP Current Condition Start: 10/17/20 15:07 Freq: Status: Active Protocol: Document 10/17/20 15:07 [facility] (Rec: 10/17/20 15:23 [facility] [id number]) Occupational Therapy Current Condition Current Condition Evaluation Date 10/17/20 Treatment Diagnosis Confusion, UTI Diagnosis Onset Date 10/16/20 M3 OT- IP Subjective and Pain Start: 10/17/20 15:07 Freq: Status: Active Protocol: Document 10/17/20 15:07 [facility] (Rec: 10/17/20 15:23 [facility] [id number]) OT- Subjective Occupational Therapy Visit Type Type Initial Evaluation Visit Start Time 14:00 Visit Stop Time 14:23 Occupational Therapy Visit Comments Patient Comments Pt agreed to do OT eval. Pt a bit tearful during OT eval as wanting to go home, but her son wanting to bring her to [place] . Patient/Caregiver Goals To go home. OT Pain Assessment Pain When Pain Assessed At Rest Pain Present Pain Present Denied Pain M4 OT- IP ADL's Start: 10/17/20 15:07 Freq: Status: Active Protocol: Document 10/17/20 15:07 [facility] (Rec: 10/17/20 15:23 [facility] [id number]) OT [id number] Comments OT Self-Feeding Comments NOt at meal time. OT ADL-Grooming Comments OT Grooming Comments NOt performed. OT ADL-Oral Care Comments Oral Care Comments NOt performed. OT ADL-Dressing General Eval Lower Body Dressing Ability Independent OT ADL-Toileting Comments OT Toileting Comments Pt states able to do on her own. OT ADL-Bathing Comments OT Bathing Comments Not perfromed. M5 OT- IP IADL's Start: 10/17/20 15:07 Freq: Status: Active Protocol: Document 10/17/20 15:07 [facility] (Rec: 10/17/20 15:23 [facility] [id number]) OT-Instrumental Activities of Daily Living Home Safety Awareness Awareness of Need for Assistance at Home Decreased Awareness Ability to Problem Solve Emergency Able to Problem Solve Situations Home Safety Comments Pt needing increased time to figure out home safety situations. Medication Management Medication Management Comments Pt not thinking well at this time due to her UTI and emotionally distracted about her situation. Therefore would be best to have someone assist her with her needs. Money Management Money Management Comments Pt not thinking well at this time due to her UTI and emotionally distracted about her situation. Therefore would be best to have someone assist her with her needs. Meal Preparation Meal Preparation Comments Pt not thinking well at this time due to her UTI and emotionally distracted about her situation. Therefore would be best to have someone assist her with her needs. Paper Bag Maker Paper Bag Maker Comments Pt not thinking well at this time due to her UTI and emotionally distracted about her situation. Therefore would be best to have someone assist her with her needs. Driving Driving Concerns Identified Regarding Safety M6 OT- IP Functional Cognition Start: 10/17/20 15:07 Freq: Status: Active Protocol: Document 10/17/20 15:07 [facility] (Rec: 10/17/20 15:23 [facility] [id number]) Cognitive Factors Limiting Selfcare Function Cognitive Ability Level of Alertness Alert,Confusional State Patient Orientation Name,Place Attention Span Ability Capable of Focused Attention, Capable of Sustained Attention Ability to Follow Commands Able to Follow One Step Commands with Increased Time, Able to Follow One Step Commands with Repetition Memory Description Short Term Impaired,Working Impaired Safety Awareness Underestimates Need for Assistance Problem Solving Ability Unable to Identify Errors, Needs Assist to Identify Solutions Executive Function Ability Unable to Switch Focus,Unable to Filter Distractions,Unable to Make Plans,Unable to Organize Plans,Unable to Remember Details Cognitive Comments Cognitive Assessment Comments Pt highly distracted and not able to focus on cognitive assessments. Pt concerned about not being able to go home and that her son will be taking her to [place]. Pt unable to complete Leeper Making Part A and not able to switch from number to letter to number. Pt results show pt has severe impairments for visual attention, task switching, mental flexibility, executive function, and speed of processing. Definitely no driving at this time. Pt's cognitive status may also be affected by her UTI and stress for her current situation. OT- Vision and Hearing OT- Hearing Assessment OT- Hearing Assessment WFL OT- Vision Assessment Visual Acuity Glasses For Reading M7 OT- IP Mobility and Balance Start: 10/17/20 15:07 Freq: Status: Active Protocol: Document 10/17/20 15:07 [facility] (Rec: 10/17/20 15:23 [facility] [id number]) OT-Transfer Assessment Sit to and From Stand Sit to and from Stand Independent Transfers Transfer Ability Independent OT- Balance Assessment Sitting Balance and Reactions Static Sitting Balance Ability Normal Dynamic Sitting Balance Ability Normal Standing Balance and Reactions Static Standing Balance Ability Normal Dynamic Standing Balance Ability Good M8 OT- IP Objective Assessments Start: 10/17/20 15:07 Freq: Status: Active Protocol: Document 10/17/20 15:07 [facility] (Rec: 10/17/20 15:23 [facility] [id number]) OT Gross Range of Motion Upper Extremity Range of Motion Assessment Within Functional Limits OT Strength Upper Extremity Strength Assessment Within Functional Limits OT- Coordination Assessment Upper Extremity Finger to Nose Test Within Functional Limits OT-Muscle Tone Assessment Muscle Tone WNL Yes M9 OT- IP Assessment and Plan Start: 10/17/20 15:07 Freq: Status: Active Protocol: Document 10/17/20 15:07 [facility] (Rec: 10/17/20 15:23 [facility] [id number]) OT Summary Assessment and Plan Potential Rehabilitation Potential Good Analytic Complexity at Evaluation Low Summary OT Impairments Functional Mobility,Dressing, Toileting,Bathing Progress Towards Goals Progressing Toward Goals Assessment Summary Pt is low complexity and main barriers pt has severe impairments for visual attention, task switching, mental flexibility, executive function, and speed of processing. Pt however has a UTI and stressed from her situations which may also be affected her cognitive status. At this time, pt would benefit from assist at home. Goals Toileting Goal Independent Bathing Goal Independent Toilet Transfer Goal Independent Shower Transfer Goal Independent Days to Meet Goals 2 Frequency of Treatment Frequency Of Treatment Once a Day Treatment Plan OT Treatment Plan ADL Training,Functional Cognition Training,Functional Mobility,Patient/Family Education,Discharge Planning Discharge Recommendations OT Discharge Recommendations Home with Assistance Transportation Needs at Discharge Private Vehicle
--- NOTE | 2020-10-17 14:49 | PC.NURSE ---
Pt discharge education given to pt and son, discussed- medications, worsening symptoms, s/s of stroke, reasons to seek medical attention, f/u appts. Pt and son expressed understanding and all questions answered. IV removed, intact tolerated well. Tele removed, VETERINARY VIRUS SERUM INSPECTOR informed. All belongings packed and sent with pt and son. Pt left via w/c assisted by HEALTH CARE ADMINISTRATOR to son's POV.
--- NOTE | 2020-10-17 21:16 | PM.DS.1 ---
History of Present Illness History of Present Illness Chief complaint: CONFUSION, MEMORY LOSS Narrative: 74W PMH CVA, HTN, HL who presents to the ER with worsening confusion. Patient is encephalopathic and is not making clear sense. She is with a neighbor who checks on her regularly and today noted she was much more confused than baseline. The patient is denying any symptoms. No pain, no fever. She does not think anything is wrong at the moment. She has no chest pain, SOB, abdominal pain, nausea, or vomiting. Neighbor is not clear how long this has been occurring for. Discharge Providers Provider Date of admission: 10/16/20 14:21 Discharge Date: 10/17/20 Consults: 10/17/20 10:03 Consult to Occupational Therapy Evaluate & Treat Comment: Physician Instructions: Evaluate and treat Consult to Physical Therapy Evaluate & Treat Comment: Physician Instructions: Evaluate and Treat Discharge provider: Steven Null MD Summary Hospital Course Discharge Diagnosis: 1. UTI 2. Metabolic encephalopathy 3. h/o CVA 4. HTN 5. HL 6. Dementia Hospital Course: Ms. Lopez is a 74W PMH of CVA, HTN, HL who came in with confusion found to have a UTI. More information was available once the patient's son arrived. Patient has been having memory issues for a prolonged amount of time. She has had driving difficulties. Family, friends, and her physician have noticed her memory decline, and she has recently had her furniture delivery driver's license revoked. She would benefit from more help for superintendent terminal to deal with her memory lapses. She has a diagnosis of dementia, likely alzheimer's, per information from her son. Here in the hospital she was initially very confused in the ER. Her vitals and labs were unremarkable. However, she had evidence of UTI and very quickly responded with initiation of antibiotics. She will be discharged on a course of antibiotics for her UTI. She recovered much faster than expected. The rest of her issues remained stable in the hospital. CODE status: Full code Status at Discharge Cognitive/behavioral status at discharge: at baseline, confused Functional status at discharge: independent ambulation Overall status at discharge: patient is progressing back to baseline Time Spent with Patient Time spent: Greater than 30 minutes Exam Vital Signs (past 8 hours): Oxygen Delivery Method Room Air Oxygen Flow Rate 0 Narrative Exam Narrative: GEN: no acute distress, well nourished female HEENT: moist mucous membranes, no JVD, neck supple EYES: PERRL CV: RRR, no murmurs PULM: clear bilaterally, no wheezes rhonchi rales ABD: soft, nontender, nondistended, no organomegaly noted, normal bowel sounds EXT: warm and well perfused, no edema SKIN: no rashes noted NEURO: patient with no focal deficits, has slight word finding difficulty PSYCH: pleasant mood Objective Labs Result Diagrams: 10/17/20 05:32 10/17/20 05:32 Labs: Laboratory Results - last 24 hr 10/17/20 10/17/20 10/17/20 05:32 05:32 05:32 WBC 5.7 RBC 3.93 L Hgb 12.0 Hct 35.8 L MCV 91.0 MCH 30.6 MCHC 33.6 RDW 13.8 Plt Count 234 Neut % (Auto) 67.9 Lymph % (Auto) 19.4 L Green % (Auto) 10.9 Eos % (Auto) 1.5 L Baso % (Auto) 0.3 Neut # (Auto) 3900 Lymph # (Auto) 1100 Green # (Auto) 600 Eos # (Auto) 100 Baso # (Auto) 0 Sodium 138 Potassium 3.6 Chloride 105 Carbon Dioxide 29 BUN 15 Creatinine 0.60 Estimated GFR > 60.0 BUN/Creatinine Ratio 25.0 H Glucose 100 Calcium Cancelled 9.7 Phosphorus 3.6 Magnesium 1.8 Total Bilirubin 1.3 Cancelled Conjugated Bilirubin 0.0 Unconjugated Bilirubin 1.4 H AST 22 Cancelled ALT 15 Cancelled Alkaline Phosphatase 67 Cancelled Total Protein 6.5 Cancelled Albumin 3.8 Cancelled Globulin 2.7 Cancelled Albumin/Globulin Ratio 1.4 Cancelled [facility] Medical History Anemia (09/13/16) Coronary artery disease involving [place] and sioux coronary artery of ass[place] and sioux heart without angina pectoris (09/13/16) Essential hypertension (09/13/16) Hirsutism (09/13/16) History of myocardial infarction (09/13/16) History of smoking (09/13/16) Mixed hyperlipidemia (09/13/16) Primary insomnia (09/13/16) Social History household members: none Smoking Status: Never smoker Discharge Plan Discharge Plan Patient Disposition: Home Provider Discharge Comment: Ms. Lopez came into the hospital with confusion. She was found to have a urinary tract infection, and started on antibiotics. With these antibiotics her confusion improved. She does have baseline confusion, from dementia, per her PCP. She will be discharged on antibiotics for three more days to finish on 10/20. Discharge orders & Medications Prescriptions: New levofloxacin 750 mg tablet 750 mg PO DAILY Qty: 3 RF: 0 Continued cholecalciferol (vitamin D3) [Vitamin D3] 2,000 UNIT capsule 2,000 unit PO QDAY Qty: 0 RF: 0 atorvastatin [Lipitor] 80 MG tablet 80 mg PO HS Qty: 90 RF: 1 amlodipine [Norvasc] 5 MG tablet 5 mg PO QDAY Qty: 90 RF: 1 omeprazole 20 MG capsule,delayed release(DR/EC) 40 mg PO QDAY Qty: 180 RF: 1 furosemide 40 MG tablet 40 mg PO QDAY Qty: 30 RF: 5 triamcinolone acetonide 0.1 % cream 0.1 % Topical PRN Qty: 80 RF: 0 clotrimazole 1 % cream 1 gm Topical QDAY Qty: 30 RF: 0 Visit Report/Discharge Packet Instructions: Levofloxacin Quality VTE Deep Vein Thrombosis/Pulmonary Embolism Present on Admission: No MIPS - Admit Advanced Care Plan / Current Medications Measures: #47 ? Advanced Care Plan Clinician documentation instruction: document at admission. [] I confirmed that the patient's Advance Care Plan is present, code status is documented, or surrogate decision maker is listed in the patient?s medical record. [SATISFIES [facility] PERFORMANCE] If Yes, Stop Here [] The patient?s Advance Care plan is not present because: (select) [MIPS PERFORMANCE EXCEPTION/EXCLUSION] [] I confirmed today that the patient does not wish or was not able to name a surrogate decision maker or provide an Advance Care Plan. [] Hospice care is currently being provided or has been provided this calendar year [] I did NOT confirm today the presence of an Advance Care Plan or surrogate decision maker documented within the patient's medical record. [DOES NOT SATISFY MIPS PERFORMANCE] #130 - Documentation of Current Medications in the Medical Record Clinician documentation instruction: use macro the first time you see a patient. [] I have utilized all available immediate resources to obtain, update, or review the patient?s current medications. [SATISFIES MIPS PERFORMANCE] If Yes, Stop Here [] The patient is not eligible for medication reconciliation; the patient is in an emergent medical situation where delaying treatment would jeopardize the patient?s health. [MIPS PERFORMANCE EXCEPTION/EXCLUSION] [] I did NOT confirm, update or review the patient's current list of medications today. [DOES NOT SATISFY MIPS PERFORMANCE] MIPS - CL Central Venous Catheter Placement Measure: #76 ? Prevention of Central Venous Catheter (CVC) ? Related Bloodstream Infection Clinician documentation instruction: use macro every time you place a central line. [] All elements of Maximal Sterile Barrier Technique, including hand hygiene, skin prep, and sterile ultrasound technique (if used) were followed. [SATISFIES MIPS PERFORMANCE] If Yes, Stop Here [] If ?No?, the medical reason all elements were NOT used for medical reason [] (ex. emergent condition). [] Maximal Sterile Barrier Technique was not followed, no reason provided [DOES NOT SATISFY MIPS PERFORMANCE] MIPS - DC Heart Failure Measures: #5 - Heart Failure (HF): Angiotensin-Converting Enzyme (SHANTELLE) Inhibitor or Angiotensin Receptor Katerina (ARB) Therapy for Left Ventricular Systolic Dysfunction (LVSD) and #8 - Heart Failure (HF): Beta-Katerina Therapy for Left Ventricular Systolic Dysfunction (LVSD) Clinician documentation instruction: use macro at every CHF discharge. [] The patient has current or prior documentation of left ventricular ejection fraction (LVEF) less than 40%, or moderate or severely depressed left ventricular systolic function. Answer both: [SATISFIES MIPS PERFORMANCE] [] The patient was prescribed or already taking an Angiotensin-Converting Enzyme (SHANTELLE) Inhibitor, or Angiotensin Receptor Katerina (ARB). [] The patient was prescribed or already taking a beta-katerina. If Yes to Both, Stop Here [] Patient not prescribed/taking: [MIPS PERFORMANCE EXCEPTION/EXCLUSION] [] SHANTELLE or ARB for medical/patient/system reason(s) including [] (ex. allergy, intolerance, contraindication) [] Beta-katerina for medical/patient/system reason(s) including [] (ex. allergy, intolerance, contraindication) [] Patient not prescribed/taking: [DOES NOT SATISFY MIPS PERFORMANCE] [] SHANTELLE or ARB, no reason given [] Beta-katerina, no reason given
== END 2020-10-17 15:13 | disposition home or self-care (01) | DRG 689 ==
LOC: ED 14:17 → AC 15:59
PROVIDERS: Admitting Provider Internal Medicine; Emergency Provider Emergency Medicine; Referring Provider Emergency Medicine; Visit Provider Internal Medicine
DX: N39.0 Urinary tract infection, site not specified (principal); G93.41 Metabolic encephalopathy; G30.9 Alzheimer's disease, unspecified; F02.80 Dementia in other diseases classified elsewhere, unspecified severity, without behavioral disturbance, psychotic disturbance, mood disturbance, and anxiety; I25.10 Atherosclerotic heart disease of native coronary artery without angina pectoris; I10 Essential (primary) hypertension; E78.2 Mixed hyperlipidemia; Z86.73 Personal history of transient ischemic attack (TIA), and cerebral infarction without residual deficits
CPT/HCPCS: 36415; 70450; 71045; 80048; 80053; 80076; 80305; 80320; 80329; 81003; 81015; 82140; 82550; 82962; 83605; 83735; 84100; 84145; 84443; 84484; 85025; 85610; 85730; 87635; 93005; 93010; 96365; 97161; 97165; 99284; G0480; J1650